=== PATIENT | female | born 1940 | race Caucasian/White ===

== ENCOUNTER 2016-03-26 09:52 | Observation (INO) | payer MEDICARE, OTHER ==
[~2016-03-26] VITALS: Ht 182.9 cm; Wt 93.9 kg
[~2016-03-26 09:52] MED LIST: ASPIRIN 81M81 MG/TA2 PO; ASPIRIN E.C. 8181 MG PO; CARDI-OMEGA1000 MG PO; CARDIZEM CD 30300 MG PO; CATAPRES 0.1MG0.1 MG PO; CATAPRES-TTS 30.3 MG TD; CATAPRES0.2 MG PO; CEPHALEXIN500 M1 PO; CORDARONE200 MG/TAB PO; DOMPERIDONE10 MG/CAP PO; ELIQUIS 5MG PO; EPA/GLA1 SGL PO; FISH OIL1000 MG PO; HCTZ 25MG TAB25 MG PO; KENALOG0.1% TP; LASIX 20MG TABL20 MG PO; MICARDIS80 MG PO; MIRALAX119G PO; MOBIC 7.5MG7.5 MG PO; MULTI VITAMINS1 TAB PO; MULTIPLE VITAMI1 CAP PO; MULTIPLE VITAMI1 CTB PO; MYLANTA 150 ML150 M1 PO; NEXIUM 40MG40 MG PO; OCUVITE1 TA1 PO; PERCOCET 325 MG1 TA2 PO; PREDNISONE20 MG PO; SYNTHROID 0.10.15 MG PO; SYNTHROID0.175 MG PO; SYNTHROID0.2 MG/TAB PO; TIAZAC300 MG PO; TOPROL XL 25MG25 MG PO; TOPROL XL100 MG PO; TYLENOL 325MG325 MG PO; ULTRAM 50MG TAB50 MG PO; VITAMIN C500 MG PO; VITAMIN D1000 IU PO; VITAMIND3 5000 PO; ZESTRIL 5MG5 MG PO; ZOCOR 10MG10 MG PO; ZOCOR 40MG40 MG PO
[2016-03-26 10:15] VITALS: BP 134/52; PULSE 70
[2016-03-26 10:23] LABS: BASO % 0.3 % (0.0-2.0); EOS # 0.1 (0.0-0.7); EOS % 0.5 % (0-4.0); GRAN # 6.8 (1.4-6.5); GRAN % 62.1 % (42.2-75.2); HEMATOCRIT 36.3 % (37.0-47.0); HEMOGLOBIN 12.1 g/dl (12.5-16.0); LYMPH # 3.2 (1.2-3.4); LYMPH % 29.1 % (20.0-51.0); MEAN CELL VOLUME 94 fl (80.0-100.0); MEAN CORPUSCULAR HEMOGLOBIN 31 pg (27.0-31.0); MEAN CORPUSCULAR HGB CONC 33 g/dl (33.0-37.0); MEAN PLATELET VOLUME 10.6 fl (7.4-10.4); MONO # 0.8 (0.1-0.6); MONO % 7.4 % (1.7-9.3); PLATELET COUNT 217 K/mm3 (130-400); RED BLOOD COUNT 3.86 M/mm3 (4.10-5.30); REDCELL DISTRIBUTION WIDTH-CV 13.6 % (11.5-14.5); WHITE BLOOD COUNT 10.9 K/mm3 (4.8-10.8)
[2016-03-26 10:27] LABS: INR 1.6 (0.8-3.0); PROTHROMBIN TIME 18.1 SECONDS (9.7-12.8)
[2016-03-26 10:30] LABS: PARTIAL THROMBOPLASTIN TIME 38.3 SECONDS (26.0-37.0)
[2016-03-26] MEDS ORDERED: VITAMIN D31000 IU PO (10:30)
[2016-03-26] MEDS ORDERED: CATAPRES 0.1MG0.1 MG PO (10:34)
[2016-03-26] MEDS ORDERED: ZANTAC 150MG T150 MG PO (10:35)
[2016-03-26] MEDS ORDERED: VERAMYST27.5 MCG/A NS (10:35)
[2016-03-26] MEDS ORDERED: LIPITOR 40MG TA40 MG PO (10:36)
[2016-03-26 10:37] LABS: ADJUSTED CALCIUM 10.6 mg/dL (8.4-10.2); ALANINE AMINOTRANSFERASE 37 U/L (9-52); ALKALINE PHOSPHATASE 57 U/L (50-136); ANION GAP 11 mmol/L (7-16); BILIRUBIN,TOTAL 0.7 mg/dL (0.0-1.0); BLOOD UREA NITROGEN 31 mg/dL (7-17); CALCIUM 10.6 mg/dL (8.4-10.2); CARBON DIOXIDE 25 mmol/L (22-30); CHLORIDE 100 mmol/L (98-107); GLUCOSE 120 mg/dL (74-106); POTASSIUM 3.5 mmol/L (3.4-5.0); SODIUM 136 mmol/L (137-145)
[2016-03-26 10:48] LABS: TROPONIN-I < 0.012 ng/mL (0.000-0.034)
[2016-03-26 13:09] VITALS: BP 128/69; PULSE 79; TEMP 97.8
[2016-03-26 16:44] VITALS: BP 161/62; PULSE 40; TEMP 97.8
[2016-03-26 20:24] VITALS: BP 158/55; PULSE 43; TEMP 97.4
[2016-03-26 23:22] VITALS: BP 148/73; PULSE 77; TEMP 97
[2016-03-27 05:22] VITALS: BP 180/60; PULSE 40; TEMP 97.8
[2016-03-27 07:44] LABS: BASO % 0.3 % (0.0-2.0); EOS # 0.1 (0.0-0.7); EOS % 1.1 % (0-4.0); GRAN # 5.9 (1.4-6.5); GRAN % 66.7 % (42.2-75.2); LYMPH # 2.1 (1.2-3.4); LYMPH % 23.8 % (20.0-51.0); MEAN CELL VOLUME 91 fl (80.0-100.0); MEAN CORPUSCULAR HGB CONC 35 g/dl (33.0-37.0); MEAN PLATELET VOLUME 11.4 fl (7.4-10.4); MONO # 0.7 (0.1-0.6); MONO % 7.6 % (1.7-9.3); PLATELET COUNT 181 K/mm3 (130-400); RED BLOOD COUNT 3.71 M/mm3 (4.10-5.30); REDCELL DISTRIBUTION WIDTH-CV 13.4 % (11.5-14.5); WHITE BLOOD COUNT 8.8 K/mm3 (4.8-10.8)
[2016-03-27 07:48] LABS: HEMATOCRIT 33.9 % (37.0-47.0); HEMOGLOBIN 11.7 g/dl (12.5-16.0); MEAN CORPUSCULAR HEMOGLOBIN 32 pg (27.0-31.0)
[2016-03-27 08:20] LABS: CALCIUM 9.8 mg/dL (8.4-10.2); CREATININE, serum 1.07 mg/dL (0.52-1.25); POTASSIUM 3.6 mmol/L (3.4-5.0)
[2016-03-27 08:41] VITALS: BP 167/63; PULSE 43; TEMP 97.6
[2016-03-27 08:47] LABS: THYROID STIMULATING HORMONE 2.62 uIU/mL (0.465-4.680)
[2016-03-27 11:31] VITALS: BP 187/68; PULSE 50; TEMP 97.3
[2016-03-27 11:45] VITALS: BP 130/76; BP 155/70; BP 183/57; PULSE 48; PULSE 50; PULSE 51
[2016-03-27] MEDS ORDERED: LOPRESSOR100 MG PO (13:21)
== END 2016-03-27 14:50 | disposition home or self-care (01) ==
LOC: COL.ER 09:52 → MEDICAL 11:28
PROVIDERS: Emergency Medicine; Internal Medicine
DX: R00.1 Bradycardia, unspecified (principal); I49.3 Ventricular premature depolarization; I95.1 Orthostatic hypotension; I12.9 Hypertensive chronic kidney disease with stage 1 through stage 4 chronic kidney disease, or unspecified chronic kidney disease; N18.9 Chronic kidney disease, unspecified
CPT/HCPCS: 99222-AI; 99239; G0378; J7030

== ENCOUNTER → 2016-05-02 | Outpatient (CLI) | payer MEDICARE, OTHER ==
[~2016-05-02] MED LIST changes: +FLONASEALLERGY NS; +LIPITOR 40MG TA40 MG PO; +LOPRESSOR100 MG PO; +PACERONE200 MG PO; +PROAIR RES117 MCG/Ac IH; +PROTONIX 40MG T40 MG PO; +VERAMYST27.5 MCG/A NS; +VITAMIN D31000 IU PO; +ZANTAC 150MG T150 MG PO
== END ==
LOC: MC.RAD 13:42
DX: Z12.31 Encounter for screening mammogram for malignant neoplasm of breast (principal)

== ENCOUNTER 2016-08-20 20:03 | Emergency (ER) | payer MEDICARE, OTHER ==
[~2016-08-20] VITALS: Ht 182.9 cm; Wt 93.2 kg
[~2016-08-20 20:03] MED LIST changes: -FLONASEALLERGY NS; -PACERONE200 MG PO; -PROAIR RES117 MCG/Ac IH; -PROTONIX 40MG T40 MG PO
[2016-08-20 20:06] VITALS: TEMP 97.8
[2016-08-20] MEDS ORDERED: PROAIR RES117 MCG/Ac IH (20:18)
[2016-08-20] MEDS ORDERED: PROTONIX 40MG T40 MG PO (20:20)
[2016-08-20] MEDS ORDERED: FLONASEALLERGY NS (20:21)
[2016-08-20] MEDS ORDERED: HCTZ 25MG TAB25 MG PO (20:22)
[2016-08-20] MEDS ORDERED: PACERONE200 MG PO (20:23)
[2016-08-20 20:51] LABS: BASO % 0.7 % (0.0-2.0); EOS # 0.1 (0.0-0.7); EOS % 1.4 % (0-4.0); GRAN # 3.3 (1.4-6.5); GRAN % 57.8 % (42.2-75.2); HEMATOCRIT 36.8 % (37.0-47.0); HEMOGLOBIN 12.7 g/dl (12.5-16.0); LYMPH # 1.8 (1.2-3.4); LYMPH % 30.4 % (20.0-51.0); MEAN CELL VOLUME 89 fl (80.0-100.0); MEAN CORPUSCULAR HEMOGLOBIN 31 pg (27.0-31.0); MEAN CORPUSCULAR HGB CONC 35 g/dl (33.0-37.0); MEAN PLATELET VOLUME 11.3 fl (7.4-10.4); MONO # 0.5 (0.1-0.6); MONO % 9.4 % (1.7-9.3); PLATELET COUNT 171 K/mm3 (130-400); RED BLOOD COUNT 4.14 M/mm3 (4.10-5.30); WHITE BLOOD COUNT 5.8 K/mm3 (4.8-10.8)
[2016-08-20 21:00] LABS: ADJUSTED CALCIUM 9.6 mg/dL (8.4-10.2); ALANINE AMINOTRANSFERASE 31 U/L (9-52); ALBUMIN 4.3 gm/dL (3.5-5.0); ALKALINE PHOSPHATASE 76 U/L (50-136); ANION GAP 13 mmol/L (7-16); BILIRUBIN,TOTAL 0.5 mg/dL (0.0-1.0); BLOOD UREA NITROGEN 23 mg/dL (7-17); CALCIUM 9.8 mg/dL (8.4-10.2); CARBON DIOXIDE 24 mmol/L (22-30); CHLORIDE 101 mmol/L (98-107); CREATININE, serum 1.34 mg/dL (0.52-1.25); GLUCOSE 100 mg/dL (74-106); POTASSIUM 3.6 mmol/L (3.4-5.0); SODIUM 137 mmol/L (137-145)
[2016-08-20 21:05] LABS: INR 1.2 (0.8-3.0); PROTHROMBIN TIME 13.3 SECONDS (9.7-12.8)
[2016-08-20 21:08] LABS: PARTIAL THROMBOPLASTIN TIME 40.6 SECONDS (26.0-37.0)
[2016-08-20 21:12] LABS: TROPONIN-I < 0.012 ng/mL (0.000-0.034)
[2016-08-20] MEDS ORDERED: CATAPRES 0.1MG0.1 MG PO (22:53)
[2016-08-20 23:01] VITALS: BP 190/87; PULSE 64
== END 2016-08-20 23:07 | disposition home or self-care (01) ==
LOC: COL.ER 20:03
PROVIDERS: Emergency Medicine
DX: I10 Essential (primary) hypertension (principal); E89.0 Postprocedural hypothyroidism; M19.90 Unspecified osteoarthritis, unspecified site; Z90.49 Acquired absence of other specified parts of digestive tract; Z95.0 Presence of cardiac pacemaker; Z87.891 Personal history of nicotine dependence; Z98.890 Other specified postprocedural states
CPT/HCPCS: Q9967

== ENCOUNTER 2016-08-23 21:37 | Emergency (ER) | payer MEDICARE, OTHER ==
[~2016-08-23] VITALS: Ht 182.9 cm; Wt 93.2 kg
[~2016-08-23 21:37] MED LIST changes: +FLONASEALLERGY NS; +PACERONE200 MG PO; +PROAIR RES117 MCG/Ac IH; +PROTONIX 40MG T40 MG PO
[2016-08-23 21:39] VITALS: TEMP 97.7
[2016-08-23 22:20] LABS: BASO % 0.7 % (0.0-2.0); EOS # 0.1 (0.0-0.7); EOS % 1.5 % (0-4.0); GRAN # 3.5 (1.4-6.5); HEMATOCRIT 37.8 % (37.0-47.0); HEMOGLOBIN 12.8 g/dl (12.5-16.0); LYMPH # 1.8 (1.2-3.4); LYMPH % 30.6 % (20.0-51.0); MEAN CELL VOLUME 90 fl (80.0-100.0); MEAN CORPUSCULAR HEMOGLOBIN 31 pg (27.0-31.0); MEAN CORPUSCULAR HGB CONC 34 g/dl (33.0-37.0); MEAN PLATELET VOLUME 11.2 fl (7.4-10.4); MONO # 0.5 (0.1-0.6); MONO % 7.9 % (1.7-9.3); PLATELET COUNT 178 K/mm3 (130-400); REDCELL DISTRIBUTION WIDTH-CV 13.1 % (11.5-14.5); WHITE BLOOD COUNT 5.9 K/mm3 (4.8-10.8)
[2016-08-23 22:29] LABS: ADJUSTED CALCIUM 9.8 mg/dL (8.4-10.2); ALBUMIN 4.5 gm/dL (3.5-5.0); BILIRUBIN,TOTAL 0.5 mg/dL (0.0-1.0); CALCIUM 10.2 mg/dL (8.4-10.2); CREATININE, serum 1.34 mg/dL (0.52-1.25); POTASSIUM 3.8 mmol/L (3.4-5.0); TOTAL PROTEIN 7.3 gm/dL (6.4-8.2)
[2016-08-23] MEDS ORDERED: CATAPRES 0.1MG0.1 MG PO (22:56)
[2016-08-23 23:35] VITALS: BP 146/77; PULSE 60
== END 2016-08-23 23:35 | disposition home or self-care (01) ==
LOC: COL.ER 21:37
PROVIDERS: Emergency Medicine
DX: I10 Essential (primary) hypertension (principal); I48.91 Unspecified atrial fibrillation; Z79.01 Long term (current) use of anticoagulants; Z95.0 Presence of cardiac pacemaker

== ENCOUNTER → 2017-05-22 | Outpatient (CLI) | payer MEDICARE, OTHER | LOC: MC.RAD 11:08 | DX: Z12.31 Encounter for screening mammogram for malignant neoplasm of breast (principal) ==

== ENCOUNTER 2017-10-12 20:38 | Emergency (ER) | payer MEDICARE, OTHER ==
[~2017-10-12] VITALS: Ht 182.9 cm; Wt 90.9 kg
[2017-10-12 20:46] VITALS: TEMP 98
[2017-10-12 21:39] LABS: BASO % 0.6 % (0.0-2.0); EOS # 0.1 (0.0-0.7); EOS % 1.8 % (0-4.0); GRAN # 2.7 (1.4-6.5); GRAN % 52.9 % (42.2-75.2); HEMATOCRIT 34.2 % (37.0-47.0); HEMOGLOBIN 11.8 g/dl (12.5-16.0); LYMPH # 1.9 (1.2-3.4); LYMPH % 36.9 % (20.0-51.0); MEAN CELL VOLUME 92 fl (80.0-100.0); MEAN CORPUSCULAR HEMOGLOBIN 32 pg (27.0-31.0); MEAN CORPUSCULAR HGB CONC 35 g/dl (33.0-37.0); MEAN PLATELET VOLUME 10.7 fl (7.4-10.4); MONO # 0.4 (0.1-0.6); MONO % 7.6 % (1.7-9.3); PLATELET COUNT 163 K/mm3 (130-400); REDCELL DISTRIBUTION WIDTH-CV 12.8 % (11.5-14.5)
[2017-10-12 21:47] LABS: ALBUMIN 4.1 gm/dL (3.5-5.0); BILIRUBIN,TOTAL 0.4 mg/dL (0.0-1.0); CREATININE, serum 1.27 mg/dL (0.52-1.25); TOTAL PROTEIN 6.9 gm/dL (6.4-8.2)
[2017-10-12 21:50] LABS: POTASSIUM 2.9 mmol/L (3.4-5.0)
[2017-10-12 21:51] VITALS: BP 158/75
[2017-10-12] MEDS ORDERED: MICRO-K 10 EXT10 MEQ PO (21:52)
[2017-10-12 21:57] VITALS: PULSE 68
== END 2017-10-12 22:11 | disposition home or self-care (01) ==
LOC: COL.ER 20:38
PROVIDERS: Family Medicine
DX: I10 Essential (primary) hypertension (principal); E87.6 Hypokalemia; I48.91 Unspecified atrial fibrillation; Z95.0 Presence of cardiac pacemaker

== ENCOUNTER → 2017-11-01 | Outpatient (CLI) | payer MEDICARE, OTHER ==
[~2017-11-01] MED LIST changes: +MICRO-K 10 EXT10 MEQ PO
== END ==
LOC: COL.RAD 09:03
DX: M48.02 Spinal stenosis, cervical region (principal); M50.322 Other cervical disc degeneration at C5-C6 level

== ENCOUNTER → 2017-12-05 | Outpatient (CLI) | payer MEDICARE, OTHER | LOC: MHCPAIN 14:29 | DX: G89.29 Other chronic pain (principal); M54.12 Radiculopathy, cervical region; M47.812 Spondylosis without myelopathy or radiculopathy, cervical region; R51 Headache; M54.81 Occipital neuralgia | CPT/HCPCS: G0463 ==

== ENCOUNTER 2018-01-29 12:45 | Outpatient (RCR) | payer MEDICARE, OTHER | END 2018-03-21 | disposition home or self-care (01) | LOC: WSC | DX: M50.30 Other cervical disc degeneration, unspecified cervical region (principal) | CPT/HCPCS: G8981-GP; G8982-GP ==

== ENCOUNTER → 2018-02-07 | Outpatient (CLI) | payer MEDICARE, OTHER | LOC: MHCPAIN 14:07 | DX: G89.29 Other chronic pain (principal); M54.12 Radiculopathy, cervical region; M54.81 Occipital neuralgia; R51 Headache; M47.812 Spondylosis without myelopathy or radiculopathy, cervical region | CPT/HCPCS: G0463 ==

== ENCOUNTER → 2018-05-28 | Outpatient (CLI) | payer MEDICARE, OTHER | LOC: MC.RAD 14:32 | DX: Z12.31 Encounter for screening mammogram for malignant neoplasm of breast (principal) ==

== ENCOUNTER 2019-01-21 13:25 | Emergency (ER) | payer MEDICARE, OTHER ==
[~2019-01-21] VITALS: Ht 182.9 cm; Wt 90.9 kg
[2019-01-21 13:33] VITALS: TEMP 98
[2019-01-21] MEDS ORDERED: LASIX 20MG TABL20 MG PO (14:30)
[2019-01-21] MEDS ORDERED: LIDODERM 5% PATC1 EA TP (14:31)
[2019-01-21] MEDS ORDERED: ZOFRAN ODT4 MG PO (14:31)
[2019-01-21 14:33] LABS: BASO % 0.6 % (0.0-2.0); EOS # 0.1 (0.0-0.7); EOS % 1.7 % (0-4.0); GRAN # 3.2 (1.4-6.5); GRAN % 62.2 % (42.2-75.2); HEMATOCRIT 37.1 % (37.0-47.0); HEMOGLOBIN 12.5 g/dl (12.5-16.0); LYMPH # 1.4 (1.2-3.4); LYMPH % 27.4 % (20.0-51.0); MEAN CELL VOLUME 93 fl (80.0-100.0); MEAN CORPUSCULAR HEMOGLOBIN 31 pg (27.0-31.0); MEAN CORPUSCULAR HGB CONC 34 g/dl (33.0-37.0); MEAN PLATELET VOLUME 10.8 fl (7.4-10.4); MONO # 0.4 (0.1-0.6); MONO % 7.7 % (1.7-9.3); PLATELET COUNT 163 K/mm3 (130-400); REDCELL DISTRIBUTION WIDTH-CV 12.9 % (11.5-14.5)
[2019-01-21 14:38] LABS: INR 1.4 (0.8-3.0); PROTHROMBIN TIME 16.8 SECONDS (9.7-12.8)
[2019-01-21 14:47] LABS: ALANINE AMINOTRANSFERASE 31 U/L (9-52); ALBUMIN 4.4 gm/dL (3.5-5.0); ALKALINE PHOSPHATASE 101 U/L (50-136); ANION GAP 10 mmol/L (7-16); AST,SGOT 30 U/L (15-37); BILIRUBIN,TOTAL 0.7 mg/dL (0.0-1.0); BLOOD UREA NITROGEN 34 mg/dL (7-17); CALCIUM 9.6 mg/dL (8.4-10.2); CARBON DIOXIDE 25 mmol/L (22-30); CHLORIDE 103 mmol/L (98-107); CREATININE, serum 2.06 (0.52-1.25); GLUCOSE 112 mg/dL (74-106); POTASSIUM 4.4 mmol/L (3.4-5.0); SODIUM 139 mmol/L (137-145); TOTAL PROTEIN 7.2 gm/dL (6.4-8.2)
[2019-01-21 14:56] LABS: TROPONIN-I < 0.012 ng/mL (0.000-0.035)
[2019-01-21 17:25] VITALS: BP 136/76; PULSE 70
== END 2019-01-21 17:27 | disposition home or self-care (01) ==
LOC: COL.ER 13:25
PROVIDERS: Family Medicine
DX: R07.9 Chest pain, unspecified (principal); I48.91 Unspecified atrial fibrillation; I12.9 Hypertensive chronic kidney disease with stage 1 through stage 4 chronic kidney disease, or unspecified chronic kidney disease; N18.3 Chronic kidney disease, stage 3 (moderate); K21.9 Gastro-esophageal reflux disease without esophagitis; E78.5 Hyperlipidemia, unspecified; Z79.01 Long term (current) use of anticoagulants

== ENCOUNTER 2020-08-07 06:13 | Emergency (ER) | payer MEDICARE, OTHER ==
[~2020-08-07] VITALS: Ht 182.9 cm; Wt 90.9 kg
[~2020-08-07 06:13] MED LIST changes: +DUO-KAPS1 CAP PO; +LIDODERM 5% PATC1 EA TP; -MULTI VITAMINS1 TAB PO; +SYNTHROID 0.0.025 MG PO; +VITAMIN D31000 I1 PO; -VITAMIN D31000 IU PO; +ZOFRAN ODT4 MG PO
[2020-08-07 06:20] VITALS: TEMP 97.8
[2020-08-07 07:09] LABS: ALANINE AMINOTRANSFERASE 24 U/L (4-34); ALKALINE PHOSPHATASE 107 U/L (50-136); ANION GAP 6 mmol/L (7-16); AST,SGOT 29 U/L (15-37); BASO % 0.6 % (0.0-2.0); BILIRUBIN,TOTAL 0.6 mg/dL (0.0-1.0); BLOOD UREA NITROGEN 23 mg/dL (7-17); CALCIUM 9.8 mg/dL (8.4-10.2); CARBON DIOXIDE 29 mmol/L (22-30); CHLORIDE 107 mmol/L (98-107); CREATININE, serum 1.48 (0.52-1.25); EOS # 0.1 (0.0-0.7); EOS % 2.3 % (0-4.0); GLUCOSE 113 mg/dL (74-106); GRAN # 4.3 (1.4-6.5); GRAN % 68.9 % (42.2-75.2); HEMATOCRIT 38.2 % (37.0-47.0); HEMOGLOBIN 12.9 g/dl (12.5-16.0); LYMPH # 1.2 (1.2-3.4); LYMPH % 19.3 % (20.0-51.0); MEAN CELL VOLUME 92 fl (80.0-100.0); MEAN CORPUSCULAR HEMOGLOBIN 31 pg (27.0-31.0); MEAN CORPUSCULAR HGB CONC 34 g/dl (33.0-37.0); MEAN PLATELET VOLUME 10.6 fl (7.4-10.4); MONO # 0.5 (0.1-0.6); MONO % 8.6 % (1.7-9.3); PLATELET COUNT 163 K/mm3 (130-400); RED BLOOD COUNT 4.14 M/mm3 (4.10-5.30); SODIUM 141 mmol/L (137-145)
[2020-08-07 07:12] LABS: CREATINE KINASE 49 U/L (30-135)
[2020-08-07 07:21] LABS: TROPONIN-I < 0.012 ng/mL (0.000-0.035)
[2020-08-07] MEDS ORDERED: NORVASC 10MG10 MG PO (07:21)
[2020-08-07] MEDS ORDERED: BETAMETHASONE O15 GM TP (07:22)
[2020-08-07] MEDS ORDERED: CATAPRES 0.1MG0.1 MG PO (07:23)
[2020-08-07] MEDS ORDERED: FLEXERIL5 MG PO (07:24)
[2020-08-07] MEDS ORDERED: PROTONIX 40MG T40 MG PO (08:53)
[2020-08-07] MEDS ORDERED: PRESERVISION1 SGL PO (08:53)
[2020-08-07] MEDS ORDERED: VOLTAREN GEL 1%1 TU TP (08:54)
[2020-08-07] MEDS ORDERED: NEXIUM 40MG40 MG PO (08:55)
[2020-08-07] MEDS ORDERED: OMEGA-31 SGL PO (09:19)
[2020-08-07] MEDS ORDERED: ANTIVERT 25MG25 MG PO ×2 (09:21→09:28)
[2020-08-07] MEDS ORDERED: MELATONIN5 M1 SL (09:21)
[2020-08-07] MEDS ORDERED: MELATONIN5 M1 PO (09:22)
[2020-08-07] MEDS ORDERED: DITROPAN 5MG TAB5 MG PO (09:23)
[2020-08-07 09:30] VITALS: BP 143/73; PULSE 66
== END 2020-08-07 09:45 | disposition home or self-care (01) ==
LOC: COL.ER 06:13
PROVIDERS: Emergency Medicine
DX: R42 Dizziness and giddiness (principal); I10 Essential (primary) hypertension; I48.91 Unspecified atrial fibrillation; Z79.01 Long term (current) use of anticoagulants; Z79.899 Other long term (current) drug therapy
CPT/HCPCS: J2405; J7030

== ENCOUNTER → 2021-04-05 | Outpatient (CLI) | payer MEDICARE, OTHER ==
[~2021-04-05] VITALS: Ht 182.9 cm; Wt 99.3 kg
[~2021-04-05] MED LIST changes: +ANTIVERT 25MG25 MG PO; +BETAMETHASONE D30 ML TP; +BETAMETHASONE O15 GM TP; +DICLOZOR1 EACH TP; +DITROPAN 5MG TAB5 MG PO; +FISH OIL 1000MG1 CAP PO; +FLEXERIL5 MG PO; +KLOR-CON SPRIN10 MEQ PO; +LEVOXYL0.2 MG PO; +LINZESS72 MCG PO; +MELATONIN5 M1 PO; +MELATONIN5 M1 SL; +MIRALAX PA17 GM/Dose PO; +MULTI VITAMINS1 TAB PO; +NORVASC 10MG10 MG PO; +OMEGA-31 SGL PO; +PRESERVISION1 SGL PO; +VOLTAREN GEL 1%1 TU TP; +ZADITOR 5 ML5 ML OP; +ZOFRAN 4MG T4 MG/TAB PO
[2021-04-05 12:45] VITALS: BP 145/76; PULSE 70; TEMP 97.2
[2021-04-05 14:00] VITALS: BP 116/67; PULSE 76
== END ==
LOC: COL.RAD 12:14
DX: M50.320 Other cervical disc degeneration, mid-cervical region, unspecified level (principal)
CPT/HCPCS: J1100

== ENCOUNTER → 2021-06-15 | Outpatient (CLI) | payer MEDICARE, OTHER ==
[~2021-06-15] MED LIST changes: +NORCO 325 MG-51 TAB PO
== END ==
LOC: MC.RAD 12:38
DX: N63.11 Unspecified lump in the right breast, upper outer quadrant (principal)

== ENCOUNTER → 2021-06-23 | Outpatient (CLI) | payer MEDICARE, OTHER | LOC: MC.RAD 08:00 | DX: N63.15 Unspecified lump in the right breast, overlapping quadrants (principal) ==

== ENCOUNTER 2021-07-27 08:13 | Day surgery (SDC) | payer MEDICARE, OTHER ==
[~2021-07-27] VITALS: Ht 182.9 cm; Wt 98.6 kg
[2021-07-27 09:45] VITALS: BP 125/57; PULSE 68; TEMP 97.9
[2021-07-27 10:55] VITALS: BP 116/50; PULSE 63; TEMP 98.2
--- NOTE | 2021-07-27 10:55 | NUR ---
PT TO BAY 7 PER CART FROM [place]. RECEIVED REPORT FROM POOL FINISHER AND SAP BUSINESS OBJECTS DEVELOPER. VS OBTAINED. CALL LIGHT WITHIN REACH. PT TOLERATING WATER AND PUDDING. PT DENIES ANY ADDITIONAL NEEDS AT THIS TIME. WILL CONTINUE TO MONITOR.
[2021-07-27 11:10] VITALS: BP 108/53; PULSE 62
--- NOTE | 2021-07-27 11:10 | NUR ---
PT CONTINUES TO DENY ANY DISCOMFORT AT THIS TIME. CONTINUES TO TOLERATE WATER. PT DENIES ANY ADDITIONAL NEEDS AT THIS TIME.
[2021-07-27 11:25] VITALS: BP 117/54; PULSE 60
--- NOTE | 2021-07-27 11:25 | NUR ---
PT TOLERATING COFFEE AND DENIES ANY NEEDS AT THIS TIME. PT STATES SHE IS READY FOR DISCHARGE.
--- NOTE | 2021-07-27 11:40 | NUR ---
IV DC'D. PT TOLERATED WELL.
--- NOTE | 2021-07-27 12:05 | NUR ---
DISCHARGE EDUCATION COMPLETED WITH PT AND HER . THEY VERBALIZED UNDERSTANDING OF HOME AND FOLLOW UP CARE. ALL QUESTIONS ANSWERED. DISCHARGE PAPERWORK GIVEN TO PT.
--- NOTE | 2021-07-27 12:15 | NUR ---
PT OFF UNIT PER WHEELCHAIR. PT DISCHARGE TO HOME WITH [facility] PER PERSONAL VEHICLE.
== END 2021-07-27 12:15 | disposition home or self-care (01) ==
LOC: SDCO 08:13
DX: L76.32 Postprocedural hematoma of skin and subcutaneous tissue following other procedure (principal); C50.411 Malignant neoplasm of upper-outer quadrant of right female breast; K21.9 Gastro-esophageal reflux disease without esophagitis; I10 Essential (primary) hypertension; Z87.891 Personal history of nicotine dependence; Z79.899 Other long term (current) drug therapy
CPT/HCPCS: J0690; J1100; J2405; J2704; J3010; J7120

== ENCOUNTER 2023-08-06 16:52 | Inpatient (IN) | payer MEDICARE, OTHER ==
[~2023-08-06] VITALS: Ht 182.9 cm; Wt 74.4 kg
[~2023-08-06 16:52] MED LIST changes: +ARIMIDEX1 MG PO; +CEFTIN 250250 MG/TAB PO; +DITROPAN XL 5MG5 M1 PO; +KLOR-CON 1010 MEQ PO; -KLOR-CON SPRIN10 MEQ PO; +LINZESS290CAP PO; -LINZESS72 MCG PO; +LOPRESSOR 225 MG/TAB PO; +NEURONTIN100 MG/CAP PO; +REGLAN 10MG10 MG/TAB PO; +SENNA-LAX8.6 MG PO
[2023-08-06 17:12] LABS: COLLECTION METHOD CATHETER
[2023-08-06] MEDS ORDERED: NS 1,000 ML IV ONE ×2 (17:15→20:00)
[2023-08-06 17:16] LABS: BASO % 0.3 % (0.0-2.0); EOS % 0.3 % (0.0-4.0); GRAN # 5.9 K/mm3 (1.4-6.5); GRAN % 78.7 % (42.2-75.2); HEMOGLOBIN 11.4 g/dl (12.5-16.0); LYMPH # 0.9 K/mm3 (1.2-3.4); LYMPH % 11.8 % (20.0-51.0); MEAN CELL VOLUME 97 fl (80.0-100.0); MEAN CORPUSCULAR HEMOGLOBIN 31 pg (27-31); MEAN CORPUSCULAR HGB CONC 32 g/dl (33.0-37.0); MEAN PLATELET VOLUME 11.8 fl (7.4-10.4); MONO # 0.6 K/mm3 (0.1-0.6); MONO % 8.5 % (1.7-9.3); PLATELET COUNT 149 K/mm3 (130-400); REDCELL DISTRIBUTION WIDTH-CV 12.8 % (11.5-14.5)
[2023-08-06 17:23] LABS: INR 1.7 (0.8-3.0); PROTHROMBIN TIME 18.2 SECONDS (9.7-12.8)
[2023-08-06 17:26] LABS: PH 5.5 (5.0-8.5); URINE APPEARANCE CLOUDY (CLEAR/HAZY); URINE BLOOD NEGATIVE (NEGATIVE); URINE COLOR YELLOW (YELLOW); URINE GLUCOSE NEGATIVE (NEGATIVE); URINE KETONE NEGATIVE (NEGATIVE); URINE NITRATE POSITIVE (NEGATIVE); URINE PROTEIN(semi-quant) NEGATIVE (NEGATIVE)
[2023-08-06 17:38] LABS: ALANINE AMINOTRANSFERASE 19 U/L (0-55); ALBUMIN 3.5 g/dL (3.4-4.8); ALKALINE PHOSPHATASE 79 U/L (40-150); ANION GAP 11 mmol/L (7-16); AST,SGOT 27 U/L (5-34); BILIRUBIN,TOTAL 0.8 mg/dL (0.2-1.2); BLOOD UREA NITROGEN 25 mg/dL (10-20); CALCIUM 10.7 mg/dL (8.4-10.2); CHLORIDE 106 mEq/L (98-107); CREATINE KINASE 78 U/L (29-168); CREATININE, serum 1.34 mg/dL (0.57-1.11); GLUCOSE 107 mg/dL (70-99); POTASSIUM 4.2 mEq/L (3.5-4.5); SODIUM 141 mEq/L (136-145); TOTAL PROTEIN 6.7 g/dl (6.2-8.1)
[2023-08-06 17:54] LABS: TROPONIN-I < 0.010 ng/mL (0.00-0.033)
[2023-08-06] MEDS ORDERED: cefTRIAXone 1 G in Water For Injection,Sterile 10 ML IV ONE (18:00)
[2023-08-06] MEDS ORDERED: Iohexol 350 - 100 ML VIAL IV ONE (19:14)
[2023-08-06] MEDS ORDERED: NS 64 ML IV SCH (19:14)
[2023-08-06] MEDS ORDERED: Acetaminophen 325 MG TAB PO ONE (20:00)
[2023-08-06] MEDS ORDERED: Acetaminophen 325 MG TAB PO PRN (21:00)
[2023-08-06] MEDS ORDERED: NS 1,000 ML IV SCH (21:00)
[2023-08-06 21:41] VITALS: BP 169/62; PULSE 65; TEMP 97.9
[2023-08-06 21:45] VITALS: BP_SYST 169
[2023-08-06] MEDS ORDERED: Atorvastatin 40 MG TAB PO SCH (22:46)
[2023-08-06] MEDS ORDERED: Apixaban 5 MG TABLET PO SCH (22:46)
[2023-08-06] MEDS ORDERED: Gabapentin 100 MG CAP PO SCH (22:47)
[2023-08-06] MEDS ORDERED: Metoprolol Tartrate 25 MG TAB PO SCH (22:47)
[2023-08-06] MEDS ORDERED: Melatonin 3 MG TAB PO SCH (22:55)
[2023-08-06] MEDS ORDERED: SYNALAR CR0.160GM TP (22:57)
[2023-08-06] MEDS ORDERED: TRIAMCINOLONE A15 G1 TP (22:58)
[2023-08-06] MEDS ORDERED: LEADER EYE ITCH5 ML OP (22:59)
[2023-08-06] MEDS ORDERED: NORVASC2.5 MG PO (22:59)
[2023-08-06] MEDS ORDERED: DIPROLENE AF GEL15GM TP (22:59)
[2023-08-06] MEDS ORDERED: TYLENOL 500MG500 MG PO (23:00)
[2023-08-06] MEDS ORDERED: Ondansetron 4 MG TAB PO PRN (23:00)
[2023-08-06] MEDS ORDERED: Ketotifen 0.025% Ophth Soln 5 ML BOTTLE OP SCH (23:15)
[2023-08-06] MEDS ORDERED: traMADol 50 MG TAB PO PRN (23:15)
[2023-08-06 23:36] VITALS: BP 168/70; PULSE 67; TEMP 98.1
[2023-08-06 23:50] VITALS: BP_SYST 168
[2023-08-07] VITALS (11 sets, daily range): BP systolic 118–146; BP diastolic 63–76; PULSE 58–61; TEMP 97.3–98.4
--- NOTE | 2023-08-07 05:15 | NUR ---
PT ARRIVED TO THE MEDICAL FLOOR AROUND 2135HRS TO ROOM 312. PT A&O X 4; VSS WITH B/P A BIT ELEVATED; O2 RA. PT COMPLAINED OF BACK PAIN. HOSPITALIST CALLED. TRAMADOL ORDERED AND GIVEN. PT FELT THE TRAMADAL WAS EFFECTIVE. PT DENIED CHEST PAIN, PALPITATIONS, SOB, N,V,D OR DIZZINESS. ADMISSIONS ASSESSMENT AND MED REC COMPLETE. PT ORIENTED TO ROOM AND HOSPITAL POLICY. PT UP TO THE BEDSIDE COMMODE A COUPLE OF TWICE TONIGHT. FALL PRECAUTIONS IN PLACE. BED ALARM ON. CALL LIGHT WITHIN REACH.
[2023-08-07 06:26] LABS: BASO % 0.5 % (0.0-2.0); EOS # 0.1 K/mm3 (0.0-0.7); EOS % 1.1 % (0.0-4.0); GRAN # 3.9 K/mm3 (1.4-6.5); GRAN % 69.1 % (42.2-75.2); HEMOGLOBIN 10.8 g/dl (12.5-16.0); LYMPH # 1.1 K/mm3 (1.2-3.4); LYMPH % 19.5 % (20.0-51.0); MEAN CELL VOLUME 95 fl (80.0-100.0); MEAN CORPUSCULAR HEMOGLOBIN 31 pg (27-31); MEAN CORPUSCULAR HGB CONC 33 g/dl (33.0-37.0); MONO # 0.5 K/mm3 (0.1-0.6); MONO % 9.3 % (1.7-9.3); PLATELET COUNT 133 K/mm3 (130-400); RED BLOOD COUNT 3.46 M/mm3 (4.10-5.30); REDCELL DISTRIBUTION WIDTH-CV 12.9 % (11.5-14.5)
[2023-08-07 06:35] LABS: CALCIUM 9.6 mg/dL (8.4-10.2); CREATININE, serum 0.87 mg/dL (0.57-1.11); POTASSIUM 3.7 mEq/L (3.5-4.5)
[2023-08-07] MEDS ORDERED: Levothyroxine 0.1 MG,Levothyroxine 0.075 MG PO SCH (07:00)
[2023-08-07] MEDS ORDERED: Furosemide 20 MG TAB PO SCH (09:00)
[2023-08-07] MEDS ORDERED: Omega-3 Fatty Acid Esters (OTC) 1,000 MG CAP PO SCH (09:00)
[2023-08-07] MEDS ORDERED: Multivitamin TAB PO SCH (09:00)
[2023-08-07] MEDS ORDERED: Lidocaine 4% Topical Patch TP SCH (09:00)
[2023-08-07] MEDS ORDERED: Anastrozole 1 MG TAB PO SCH (09:00)
[2023-08-07] MEDS ORDERED: Eye Formula MVI w/Minerals TABLET PO SCH (09:00)
[2023-08-07] MEDS ORDERED: amLODIPine 5 MG TAB PO SCH (09:00)
[2023-08-07] MEDS ORDERED: Metoclopramide 10 MG TAB PO SCH (09:00)
[2023-08-07] MEDS ORDERED: Cholecalciferol (Vit D3) 1000 Units TAB PO SCH (09:00)
[2023-08-07] MEDS ORDERED: Oxybutynin 5 MG TAB PO SCH (09:00)
[2023-08-07] MEDS ORDERED: Amiodarone 200 MG TAB PO SCH (09:00)
--- NOTE | 2023-08-07 09:00 | NUR ---
PATIENT RESTING IN BED. ALERT AND ORIENTED. THIS NURSE ASSISTED PATIENT TO THE BATHROOM. PATIENT AMBULATED WELL WITH ASSISTANCE. SHIFT ASSESSMENT COMPLETE. EDEMA NOTED TO BLE. PATIENT DENIES PAIN. PATIENT NEEDS ASSISTANCE TAKING MEDICATIONS D/T DIFFICULTY SEEING THE PILLS. DENIES NEEDS OR CONCERNS AT THIS TIME. CALL LIGHT WITHIN REACH.
--- NOTE | 2023-08-07 09:43 | NUR ---
pony worker met with pt to discuss discharge planning. She reports to reside at [facility]. She sees Dr. Sood for PCP needs and obtains medications from [facility] with no issues. She reports her friend, Cindi as her DPOA-HC. MARVA did not have a copy on file. She states [facility] should have this. She reports to need some assistance with showering and directing her to the food on her plate due to a vision impairment, but otherwise is independent with ADLS. She uses a rolator for DME. She reports needing to know what food is on her plate, what direction, and needing a straw. MARVA informed her of the items on her plate and where they are located. MARVA advised she will inform the nurse/aide to assist her in the future too. MARVA informed HERMELINDA Solis of pt needing cueing for food items and straws with her food. MARVA called [facility] and requested DPOA-HC listing Caren. Cordon with fax this over to medical floor. PT/OT Pending Discharge Plan: return to [facility]
--- NOTE | 2023-08-07 10:20 | NUR ---
soil sort worker faxed updates to [facility]. PT/OT pending Discharge Plan: return to [facility]
--- NOTE | 2023-08-07 13:32 | NUR ---
D: Director Inbound Sales stopped by room on rounds. A: Pt was resting and content sitting in her chair. Pt has no needs right now. P: Director Inbound Sales informed pt that if she needed anything from the crew caller area to let her nurse know. Director Inbound Sales will follow up as needed.
--- NOTE | 2023-08-07 14:08 | NUR ---
Assistant Clinical Director met patient's DPOA-HC, Cindi in the hallway and introduced herself. MARVA and Cindi discussed discharge planning and transportation at time of discharge.
[2023-08-07] MEDS ORDERED: cefTRIAXone 1 G in Water For Injection,Sterile 10 ML IV SCH (18:00)
[2023-08-08] VITALS (12 sets, daily range): BP systolic 134–162; BP diastolic 64–90; PULSE 59–61; TEMP 97.4–98.5
--- NOTE | 2023-08-08 00:14 | NUR ---
Patient lying in bed, alert and oriented x4. denies chest pain and shortness of breath. lower back lidocaine patch removed, bruising scattered to extremities and slight swelling in BLE and BUE noted. IV in LAC patent with NS running at 60 ml/hr, site CDI. pt has no further needs, questions or concerns at this time. fall precautions in place, call light within reach. will continue to monitor.
[2023-08-08 06:45] LABS: BASO % 0.3 % (0.0-2.0); EOS # 0.1 K/mm3 (0.0-0.7); EOS % 1.7 % (0.0-4.0); GRAN # 4.2 K/mm3 (1.4-6.5); GRAN % 73.4 % (42.2-75.2); HEMOGLOBIN 10.2 g/dl (12.5-16.0); LYMPH % 17.1 % (20.0-51.0); MEAN CELL VOLUME 96 fl (80.0-100.0); MEAN CORPUSCULAR HEMOGLOBIN 31 pg (27-31); MEAN CORPUSCULAR HGB CONC 33 g/dl (33.0-37.0); MONO # 0.4 K/mm3 (0.1-0.6); MONO % 7.3 % (1.7-9.3); PLATELET COUNT 129 K/mm3 (130-400); RED BLOOD COUNT 3.27 M/mm3 (4.10-5.30); REDCELL DISTRIBUTION WIDTH-CV 12.5 % (11.5-14.5)
[2023-08-08 06:48] LABS: HEMATOCRIT 31.3 % (37.0-47.0)
[2023-08-08 06:58] LABS: CALCIUM 9.2 mg/dL (8.4-10.2); CREATININE, serum 0.81 mg/dL (0.57-1.11); POTASSIUM 3.7 mEq/L (3.5-4.5)
--- NOTE | 2023-08-08 10:00 | NUR ---
PATIENT SITTING UP IN BED EATING BREAKFAST. ALERT AND ORIENTED. SHIFT ASSESSMENT COMPLETE. DENIES PAIN OR DISCOMFORT.
--- NOTE | 2023-08-08 10:41 | NUR ---
PATIENT AMBULATED IN [place] WITH PT. TOLERATED WELL. STEADY GAIT
--- NOTE | 2023-08-08 12:39 | NUR ---
Post Manager attended clinical rounds with the team and patient will discharge back to [facility] if she continues to do well. MARVA student, Lucille contacted [facility] and they advised patient gets [facility]. Lucille faxed updates to [place] and also sent a referral to [facility]. MARVA contacted Cortney at [facility] to notify her of referral. MARVA contacted patient's DPOACindi to provide update. Discharge Plan: [facility] with [facility]
[2023-08-08] MEDS ORDERED: EPA FISH OIL1 SGL PO (13:51)
[2023-08-08] MEDS ORDERED: VOLTAREN GEL 1%1 TU TOP (13:53)
--- NOTE | 2023-08-08 22:39 | NUR ---
UPON SHIFT ASSESSMENT, JENS WAS AWAKE IN BED AND AXO X4, LT AC RUNNING NS AT 60ML/HR. VITAL SIGNS ARE WNL. PATIENT DENIES PAIN OR SOA AT THIS TIME. +2 EDEMA NOTED IN BILATERAL ANKLES. LUNG SOUNDS CLEAR, HR 58 BPM. MED PASS COMPLETE.
--- NOTE | 2023-08-09 00:15 | NUR ---
PATIENT REFUSES SCDs
[2023-08-09 00:57] VITALS: BP_SYST 153
[2023-08-09 03:21] VITALS: BP 122/64; PULSE 61; TEMP 98
[2023-08-09 03:38] VITALS: BP 155/72; PULSE 59; TEMP 97.6
[2023-08-09 05:05] VITALS: BP_SYST 155
[2023-08-09 06:53] LABS: BASO % 0.3 % (0.0-2.0); EOS # 0.1 K/mm3 (0.0-0.7); EOS % 1.1 % (0.0-4.0); GRAN # 4.7 K/mm3 (1.4-6.5); GRAN % 73.8 % (42.2-75.2); HEMOGLOBIN 10.7 g/dl (12.5-16.0); LYMPH # 1.2 K/mm3 (1.2-3.4); LYMPH % 17.9 % (20.0-51.0); MEAN CELL VOLUME 93 fl (80.0-100.0); MEAN CORPUSCULAR HEMOGLOBIN 31 pg (27-31); MEAN CORPUSCULAR HGB CONC 33 g/dl (33.0-37.0); MONO # 0.4 K/mm3 (0.1-0.6); MONO % 6.6 % (1.7-9.3); PLATELET COUNT 144 K/mm3 (130-400); RED BLOOD COUNT 3.49 M/mm3 (4.10-5.30); REDCELL DISTRIBUTION WIDTH-CV 12.5 % (11.5-14.5)
[2023-08-09 06:55] LABS: HEMATOCRIT 32.5 % (37.0-47.0)
[2023-08-09 07:17] VITALS: BP 159/68; PULSE 76; TEMP 98
[2023-08-09 07:17] LABS: CALCIUM 10.1 mg/dL (8.4-10.2); CREATININE, serum 0.75 mg/dL (0.57-1.11); POTASSIUM 3.4 mEq/L (3.5-4.5)
[2023-08-09] MEDS ORDERED: AMOXICILLIN 8751 TAB PO (09:16)
[2023-08-09] MEDS ORDERED: SYNTHROID0.175 MG PO (09:23)
[2023-08-09] MEDS ORDERED: cefTRIAXone 1 G in Water For Injection,Sterile 10 ML IV ONE (09:30)
--- NOTE | 2023-08-09 10:26 | NUR ---
ATTEMPTED TO CALL [facility] ON THIS PATIENTS RETURN STATUS, UPDATED MEDS AND APT. NO ANSWER.
--- NOTE | 2023-08-09 10:56 | NUR ---
PATIENT DRESSED, IV REMOVED. PATIENT GIVEN DISCHARGE INSTRUCTIOSN AND EDUCATION, PATIENT TAKEN VIA [facility] ER ENTRANCE WHERE SHE LEFT INS TABLE CONDITION WITH HER DPOA LEO.
--- NOTE | 2023-08-09 13:08 | NUR ---
Inker Machine attended clinical rounds with the team and patient is ready for discharge today. MARVA presented and reviewed IM form with patient who verbalized understanding and provided signature. MARVA student, Lucille placed form in chart and provided copy to patient. MARVA contacted [facility] and faxed discharge orders. MARVA contacted Cindi, who will be here to pick up and delivery driver patient at 1100. MARVA then contacted Cortney at [facility] and faxed discharge orders. Discharge Plan: [facility] with [facility]
== END 2023-08-09 11:01 | disposition home health service (06) | DRG 689 ==
LOC: COL.ER 16:52 → MEDICAL 20:18
PROVIDERS: Nurse Practitioner Family; ADMIT Internal Medicine
DX: N39.0 Urinary tract infection, site not specified (principal); G93.41 Metabolic encephalopathy; E44.0 Moderate protein-calorie malnutrition; I31.39 Other pericardial effusion (noninflammatory); I48.20 Chronic atrial fibrillation, unspecified; N18.4 Chronic kidney disease, stage 4 (severe); N17.9 Acute kidney failure, unspecified; Z66 Do not resuscitate; E86.0 Dehydration; G89.29 Other chronic pain; M54.9 Dorsalgia, unspecified; I12.9 Hypertensive chronic kidney disease with stage 1 through stage 4 chronic kidney disease, or unspecified chronic kidney disease; D64.9 Anemia, unspecified; K21.9 Gastro-esophageal reflux disease without esophagitis; K31.84 Gastroparesis; R91.8 Other nonspecific abnormal finding of lung field; E78.00 Pure hypercholesterolemia, unspecified; J43.9 Emphysema, unspecified; G31.84 Mild cognitive impairment of uncertain or unknown etiology; K58.9 Irritable bowel syndrome, unspecified; K57.30 Diverticulosis of large intestine without perforation or abscess without bleeding; B96.1 Klebsiella pneumoniae [K. pneumoniae] as the cause of diseases classified elsewhere; E03.9 Hypothyroidism, unspecified; E83.52 Hypercalcemia; H35.30 Unspecified macular degeneration; Z95.0 Presence of cardiac pacemaker; Z85.3 Personal history of malignant neoplasm of breast; Z90.49 Acquired absence of other specified parts of digestive tract; Z88.8 Allergy status to other drugs, medicaments and biological substances; Z79.01 Long term (current) use of anticoagulants; Z79.899 Other long term (current) drug therapy; Z79.890 Hormone replacement therapy; Z87.891 Personal history of nicotine dependence; Z68.22 Body mass index [BMI] 22.0-22.9, adult; Z23 Encounter for immunization
CPT/HCPCS: J0696; J7030; Q9967

== ENCOUNTER 2023-08-20 13:23 | Observation (INO) | payer MEDICARE, OTHER ==
[~2023-08-20] VITALS: Ht 182.9 cm; Wt 71.1 kg
[~2023-08-20 13:23] MED LIST changes: +AMOXICILLIN 8751 TAB PO; +DIPROLENE AF GEL15GM TP; +EPA FISH OIL1 SGL PO; +LEADER EYE ITCH5 ML OP; +NORVASC2.5 MG PO; +SYNALAR CR0.160GM TP; +TRIAMCINOLONE A15 G1 TP; +TYLENOL 500MG500 MG PO; +VOLTAREN GEL 1%1 TU TOP
[2023-08-20] MEDS ORDERED: NS 1,000 ML IV ONE (13:45)
[2023-08-20 14:01] LABS: BASO % 0.4 % (0.0-2.0); EOS # 0.1 K/mm3 (0.0-0.7); EOS % 0.8 % (0.0-4.0); GRAN # 6.3 K/mm3 (1.4-6.5); GRAN % 81.2 % (42.2-75.2); HEMOGLOBIN 11.6 g/dl (12.5-16.0); LYMPH # 0.9 K/mm3 (1.2-3.4); LYMPH % 10.9 % (20.0-51.0); MEAN CELL VOLUME 96 fl (80.0-100.0); MEAN CORPUSCULAR HEMOGLOBIN 31 pg (27-31); MEAN CORPUSCULAR HGB CONC 32 g/dl (33.0-37.0); MEAN PLATELET VOLUME 12.1 fl (7.4-10.4); MONO # 0.5 K/mm3 (0.1-0.6); MONO % 6.4 % (1.7-9.3); PLATELET COUNT 155 K/mm3 (130-400); RED BLOOD COUNT 3.77 M/mm3 (4.10-5.30); REDCELL DISTRIBUTION WIDTH-CV 13.3 % (11.5-14.5)
[2023-08-20 14:02] LABS: HEMATOCRIT 36.3 % (37.0-47.0)
[2023-08-20 14:19] LABS: ALBUMIN 3.6 g/dL (3.4-4.8); BILIRUBIN,TOTAL 0.6 mg/dL (0.2-1.2); CALCIUM 9.4 mg/dL (8.4-10.2); CREATININE, serum 1.65 mg/dL (0.57-1.11); POTASSIUM 4.1 mEq/L (3.5-4.5); TOTAL PROTEIN 6.8 g/dl (6.2-8.1)
[2023-08-20 14:27] LABS: COLLECTION METHOD CATHETER
[2023-08-20 14:31] LABS: PH 5.5 (5.0-8.5); URINE APPEARANCE CLEAR (CLEAR/HAZY); URINE BLOOD NEGATIVE (NEGATIVE); URINE COLOR YELLOW (YELLOW); URINE GLUCOSE NEGATIVE (NEGATIVE); URINE KETONE TRACE (NEGATIVE); URINE NITRATE NEGATIVE (NEGATIVE); URINE PROTEIN(semi-quant) NEGATIVE (NEGATIVE); URINE UROBILINOGEN 0.2 E.U/dL (0.2-1.0)
[2023-08-20] MEDS ORDERED: traMADol 50 MG TAB PO ONE (15:15)
[2023-08-20] MEDS ORDERED: BACTRIM DS 8001 TAB PO (15:46)
[2023-08-20] MEDS ORDERED: NS 1,000 ML IV SCH (17:15)
[2023-08-20 17:41] VITALS: BP 126/64; PULSE 63; TEMP 98.3
--- NOTE | 2023-08-20 17:45 | NUR ---
PT ADMITTED TO FLOOR AROUND 1745 D/T FALLS AND WEAKNESS. . VSS. CATHETER IN PLACE. 2L O2 VIA NC. DENIES PAIN. HR VIA TELE READS 60BPM. PT HAS PACEMAKER. IV FLUIDS INITIATED PER eMAR. PT'S FRIEND SOPHIA GIVEN UPDATE ON PT'S CONDITION AND VISITING HOURS. FALL PREVENTION PROTOCOL INITIATED. BED ALARM ON AND CALL LIGHT WITHIN REACH. NO FURTHER CONCERNS AT THIS TIME.
[2023-08-20] MEDS ORDERED: MULTIPLE VITAMI1 CAP PO (17:49)
[2023-08-20 18:01] VITALS: BP_SYST 126
[2023-08-20] MEDS ORDERED: Acetaminophen 500 MG TAB PO PRN (19:30)
[2023-08-20] MEDS ORDERED: Ondansetron 4 MG TAB PO PRN (19:30)
[2023-08-20] MEDS ORDERED: Amiodarone 200 MG TAB PO SCH (19:34)
[2023-08-20 20:00] VITALS: BP 127/58; PULSE 60; TEMP 97.9
[2023-08-20 20:40] VITALS: BP_SYST 127
[2023-08-20] MEDS ORDERED: Atorvastatin 40 MG TAB PO SCH (21:00)
[2023-08-20] MEDS ORDERED: Metoclopramide 10 MG TAB PO SCH (21:00)
[2023-08-20] MEDS ORDERED: Gabapentin 100 MG CAP PO SCH (21:00)
[2023-08-20] MEDS ORDERED: Apixaban 5 MG TABLET PO SCH (21:00)
[2023-08-21] VITALS (11 sets, daily range): BP systolic 130–180; BP diastolic 49–73; PULSE 60–62; TEMP 97.5–98
[2023-08-21 07:26] LABS: CALCIUM 8.8 mg/dL (8.4-10.2); CREATININE, serum 0.99 mg/dL (0.57-1.11); POTASSIUM 4.1 mEq/L (3.5-4.5)
[2023-08-21] MEDS ORDERED: Polyethylene Glycol 3350 17 GM PDS PO SCH (09:00)
--- NOTE | 2023-08-21 09:34 | NUR ---
Initial visit attempt; Patient slumped over sideways attempting to eat a pancake whole then dropping it and putting the fork in her mouth thinking she had something to eat. Agency Sales Representative located her nurse and found some help for Jeanie. Nurses thanked Agency Sales Representative for letting them know about Jeanie' eating issue.
[2023-08-21] MEDS ORDERED: Amoxicillin/Clavulanate K+ 500/125 MG TAB PO SCH (10:00)
--- NOTE | 2023-08-21 10:03 | NUR ---
SW met with patient to complete initial assessment for discharge planning. Patient admitted from [facility] due to falls and increased weakness. Patient identified her brother in law Mj Morley ([phone]) as emergency contact and Cindi Morley ([phone]) as her neighbor and DPOA. Patient also lists her step daughter Ada Mack ([phone]) as alternate DPOA. Patient sees Dr Cruz as her PCP and uses [facility] pharmacy. Patient states her only DME is a walker. Patient does not meet criteria for inpatient admission and is being recommended for [facility] placement. SW left message for nurse at [facility] to return call to discuss patient's discharge. SW called Cindi and was unable to leave message. Discharge plan: Return to [facility] vs LTC
--- NOTE | 2023-08-21 11:00 | NUR ---
Assessment completed. Patient up to chair with assistance from physical therapy. RUE restriction. AV paced on tele. O2 1L/NC. BLE with +1 edema. Denies pain or needs. Family at bedside.
[2023-08-21] MEDS ORDERED: AMOXICILLIN/CLA1 TA1 PO (11:15)
--- NOTE | 2023-08-21 11:19 | NUR ---
MARVA spoke with HERMELINDA Kim at [facility] who reports that patient normally ambulates throughout facility with her walker, is currently recieving nursing and PT/OT from [facility]. Judy states that they are able to accept patient back when discharged. MARVA received call from Dr. Ayon stating patient is stable for discharge today. MARVA spoke with Judy again who reports that patient's family will transport. Discharge plan: return to [facility]
--- NOTE | 2023-08-21 12:04 | NUR ---
Discharge orders and clinicals faxed to [facility] and secure emailed to [facility] .
[2023-08-21] MEDS ORDERED: amLODIPine 10 MG TAB PO ONE (13:00)
--- NOTE | 2023-08-21 13:31 | NUR ---
Dr. Ayon notified of patient's most recent blood pressures- SBP >170. New orders rec'zafar Ugalde administered as ordered.
--- NOTE | 2023-08-21 14:17 | NUR ---
MARVA received call from ELISSA Puente, stating that she has talked with the [place] [employer] and has been advised that patient "would be better served to be admitted to SNF". SW was informed by Cindi that [facility] staff had been to patients room today to assess her for return to [facility]. SW nor RN was made aware that [place] staff were present. Cindi talking over this SW and requesting that patient be sent to [facility]. MARVA explained that patient is admitted observation status which does not qualify her for SNF placement. Cindi began quoting qualifying criteria for patient to be admitted skilled. She then stated that patient was admitted two weeks ago as inpt and DOES qualify for placement. Cindi then began asking medical questions related to patient's condition. MARVA explained these questions are out of my scope of practice and attending was willing to speak with her via phone. MARVA called Susan at [facility] to inquire about possible referral. She stated they will look at patient's information to determine if patient qualifies on previous admission. She stated they cannot admit patient today, but if accepted, can admit tomorrow. Dr. Ayon notified of this and cancelled the discharge for today. MARVA talked with Director Jessica Schwartz about situation. Clinicals from previous admission, as well as current admission sent via secure email to Susan at [facility] for review. Discharge plan: SNF vs LTC vs [place]
--- NOTE | 2023-08-21 14:32 | NUR ---
SW received call from Susan at [facility] accepting patient for admission tomorrow pending no further episodes of diarrhea. Updates will be sent tomorrow for review. Discharge plan: SNF
--- NOTE | 2023-08-21 14:45 | NUR ---
Patient noted to be leaning towards her right side while resting in bed and chair. PCT report patient with little control of her right side when tranferring to [facility] and required max assist to keep her upright. Rec'd order for MRI of head.
--- NOTE | 2023-08-21 17:00 | NUR ---
Patient has pacemaker and requires a radiology nurse to be present to deactivate pacer and can fit patient in an inpatient slot tomorrow at [address]. Dr[address] Ayon notified. CT scan completed and patient now in room. x2 assist to BSC- voided pink colored urine, per Denise, RN- reports that patient did not lean to her right as she sat on the BSC.
--- NOTE | 2023-08-21 17:31 | NUR ---
Spoke with Marlena, patient's DPOA, regarding patient's leaning to the right side and order for MRI tomorrow. Marlena reports that in the past, when patient is having pain, she will lean to the right to alleviate some of her chronic low back pain. Dr. Ayon notified. Pt medicated with Tylenol for c/o pain 04/01. Neuro checks WNL. Family reports patient's speech sometimes sounds slurred but a lot of it has to do with her bel[place]ian accent. Pt currently resting in bed. Alert. Oriented to self, and month/year. Very pleasant and cooperative. Fall precautions in place.
--- NOTE | 2023-08-21 19:09 | NUR ---
Bedside report given to HERMELINDA Mobley.
[2023-08-22 04:33] VITALS: BP 165/61; PULSE 51; TEMP 97.4
[2023-08-22 06:51] LABS: BASO # 0.1 K/mm3 (0.0-0.2); BASO % 0.8 % (0.0-2.0); EOS # 0.1 K/mm3 (0.0-0.7); EOS % 1.3 % (0.0-4.0); GRAN # 4.7 K/mm3 (1.4-6.5); GRAN % 77.6 % (42.2-75.2); HEMOGLOBIN 11.6 g/dl (12.5-16.0); LYMPH # 0.8 K/mm3 (1.2-3.4); LYMPH % 13.1 % (20.0-51.0); MEAN CELL VOLUME 94 fl (80.0-100.0); MEAN CORPUSCULAR HEMOGLOBIN 32 pg (27-31); MEAN CORPUSCULAR HGB CONC 34 g/dl (33.0-37.0); MEAN PLATELET VOLUME 11.7 fl (7.4-10.4); MONO # 0.4 K/mm3 (0.1-0.6); PLATELET COUNT 134 K/mm3 (130-400); RED BLOOD COUNT 3.67 M/mm3 (4.10-5.30); REDCELL DISTRIBUTION WIDTH-CV 12.9 % (11.5-14.5)
--- NOTE | 2023-08-22 07:00 | NUR ---
BEDSIDE REPORT GIVEN AT THIS TIME. PT STATES NO COMPLAINTS. CALL LIGHT WITHIN REACH.
[2023-08-22 07:04] LABS: HEMATOCRIT 34.6 % (37.0-47.0)
[2023-08-22 07:13] LABS: CALCIUM 9.4 mg/dL (8.4-10.2); CREATININE, serum 0.82 mg/dL (0.57-1.11); POTASSIUM 3.8 mEq/L (3.5-4.5)
[2023-08-22 07:36] VITALS: BP 170/71; PULSE 67; TEMP 97.6
[2023-08-22 07:43] VITALS: BP_SYST 170
--- NOTE | 2023-08-22 08:21 | NUR ---
SCHEDULED MEDICAIONS ADMINISTERED AT THIS TIME. SHIFT ASSESSMENT COMPLETED. PT REPORTS NO CONCERNS TODAY. DISCUSSED PLAN FOR THE DAY WITH PATIENT IN AGREEANCE. CALL LIGHT WITHIN REACH.
--- NOTE | 2023-08-22 09:36 | NUR ---
SW attended clinical rounds. Patient stable for discharge to SNF today. MARVA spoke with Susan at [facility] who requested updates related to diarrhea. Updated clinicals sent via secure email. Plan for discharge today. [facility] Discharge plan: SNF
[2023-08-22] MEDS ORDERED: amLODIPine 5 MG TAB PO SCH (10:00)
[2023-08-22] MEDS ORDERED: Metoprolol Tartrate 25 MG TAB PO SCH (10:00)
[2023-08-22] MEDS ORDERED: Polyethylene Glycol 3350 17 GM PDS PO SCH (10:00)
--- NOTE | 2023-08-22 14:51 | NUR ---
1215 [facility] STAFF HERE TO TRANSPORT PATIENT TO SNF VIA WHEELCHAIR. NO COMPLAINTS AT THIS TIME. [phone] CALLED REPORT TO ANGELIQUE AT [facility].
== END 2023-08-22 12:15 ==
LOC: COL.ER 13:23 → MEDICAL 15:14
PROVIDERS: Emergency Medicine; Physician Assistant; ADMIT Internal Medicine
DX: R53.1 Weakness (principal); N17.9 Acute kidney failure, unspecified; N18.4 Chronic kidney disease, stage 4 (severe); R19.7 Diarrhea, unspecified; M54.9 Dorsalgia, unspecified; G89.29 Other chronic pain; I12.9 Hypertensive chronic kidney disease with stage 1 through stage 4 chronic kidney disease, or unspecified chronic kidney disease; E78.5 Hyperlipidemia, unspecified; I48.20 Chronic atrial fibrillation, unspecified; I95.1 Orthostatic hypotension; K21.9 Gastro-esophageal reflux disease without esophagitis; K31.84 Gastroparesis; K58.9 Irritable bowel syndrome, unspecified; I08.1 Rheumatic disorders of both mitral and tricuspid valves; H35.30 Unspecified macular degeneration; C50.911 Malignant neoplasm of unspecified site of right female breast; Z79.890 Hormone replacement therapy; Z79.899 Other long term (current) drug therapy; Z91.81 History of falling; Z95.0 Presence of cardiac pacemaker
CPT/HCPCS: A4314; G0378; J7030